=== PATIENT | female | born 1995 | race Caucasian/White ===

== ENCOUNTER 2022-05-07 09:49 | Emergency (ER) | payer BC, SELFPAY ==
[2022-05-07 09:55] VITALS: BP 104/79; PULSE 91; RESP 19; TEMP 37.2; O2SAT 98; BMI 39.6
--- NOTE | 2022-05-07 10:01 | XR_ITS ---
PROCEDURE INFORMATION: Exam: XR Left Foot Exam date and time: 05/07/2022 10:04 AM Age: 26 years old Clinical indication: Pain; Foot; Left; Additional info: Twisted foot while playing basketball TECHNIQUE: Imaging protocol: Radiologic exam of the Left foot. Views: 3 or more views. COMPARISON: No relevant prior studies available. FINDINGS: Bones/joints: No acute fracture or malalignment. Joint spaces are maintained. Soft tissues: Normal. IMPRESSION: No acute fracture or malalignment.
--- NOTE | 2022-05-07 10:27 | HMH.EDUTC ---
[facility] [place] Impression: Foot sprain Qualifiers: Encounter type: initial encounter Laterality: left Qualified Code(s): S93.602A - Unspecified sprain of left foot, initial encounter Disposition: Home, Self-Care Condition on Discharge: Good Instructions: How To Perform RICE (Rest, Ice, Compress, Elevate) Additional Instructions: *weight bearing as tolerated *RICE, Rest the extremity, Ice 15-20 minutes 3-4 times daily, Compress- wear the calvin wrap as discussed as much as possible to help reduce swelling and pain, Elevate the extremity when at rest *Calvin wrap is for support and help control swelling, use it except in the shower. Be sure that is not to tight but not to loose either *Elevate when resting *Ibuprofen every 6-8 hours as needed for pain an inflammation. If need something more can take Tylenol in between doses of Ibuprofen to help Immediately follow up with your family doctor for new or worsening of symptoms, or no noticeable improvement over the next 3-5 days Referrals: Reno Perea JR, MD [Primary Care Provider] - As needed Time of Disposition: 10:56 Medical Decision Making - Lucio Inquiry Pt receiving controlled substance: No Lucio was queried for this patient: No Vital Signs: 05/07/22 09:55 05/07/22 10:48 Temperature 98.9 F 98.9 F Temperature Source Oral Pulse Rate 91 H Pulse Rate [Right Brachial] 91 H Respiratory Rate 19 19 Blood Pressure 104/79 L Blood Pressure [Right Arm] 104/79 L Blood Pressure Mean [Right Arm] 87 Blood Pressure Source [Right Arm] Automatic Cuff Blood Pressure Position [Right Arm] Sitting 02 Sat by Pulse Oximetry 98 Oxygen Delivery Method Room Air Orders (Tests/Meds): ORDERS Category Date Time Status XR foot LT min 3V Stat Exams 05/07/22 10:01 Taken - Radiology Data #1 Image(s): Foot/Toes Image Reviewed: Yes I have reviewed radiologist's interpretation IMPRESSION: No acute fracture or malalignment. [facility] [place] - General Stated complaint: AO 7/3 ankle pain Time Seen by Provider: 05/07/22 10:27 Mode of Arrival: Ambulatory Source of Information: Patient Limitations: No Limitations Description of Symptoms (Recalled from Triage Doc. by RN): PATIENT C/O LEFT ANKLE AND FOOT PAIN AFTER TWISTING HER ANKLE PLAYING BASKETBALL LAST NIGHT HEENT Symptoms (Recalled from RN notes): No Resp Symptoms (Recalled from RN notes): No Skin Symptoms (Recalled from RN notes): No MS Symptoms (Recalled from RN notes): Yes Functional Status (Recalled from RN notes): WNL - History of Present Illness Provider Complaint: Patient state that she was playing basketball last night when she twisted her ankle States that ever since she has been having pain in the top of her foot so today when she was still having pain she came in to get it checked out - Related Data Allergies Allergy/AdvReac Type Severity Reaction Status Date / Time sulfamethoxazole Allergy Verified 05/07/22 10:12 [From Bactrim] trimethoprim [From Bactrim] Allergy Verified 05/07/22 10:12 - Worker's Comp Is this a Worker's Comp case?: No [facility] [place] History - Hepatitis A Screen Attestation statement:: This patient has been screened for Hepatitis A risk factors. I have reviewed the patient's past medical history: Yes - Social History Alcohol Intake: never Occupational Status: other ROS Obtained: Yes All systems reviewed & no additional complaints, Yes Systems reviewed as appropriate & no additional complaints - Constitutional Constitutional: Reports system reviewed and no additional complaints, except as docu, Denies body ache, Denies chills, Denies fever(s) - ENT Ears, Nose, Mouth, and Throat: Reports system reviewed and no additional complaints, except as docu - Cardiovascular Cardiovascular: Reports system reviewed and no additional complaints, except as docu - Respiratory Respiratory: Reports system reviewed and no additional complaints, except as docu - Gastrointe
[2022-05-07 10:48] VITALS: BP 104/79; PULSE 91; RESP 19; TEMP 37.2; O2SAT 98
== END 2022-05-07 11:00 | disposition home or self-care (01) ==
PROVIDERS: Emergency Provider Nurse Practitioner; PCP Family Medicine
DX: S93.602A Unspecified sprain of left foot, initial encounter (principal); Y93.67 Activity, basketball
CPT/HCPCS: 73630; 99212; G0463